=== PATIENT | female | born 1935 | race Native Hawaiian/Other Pacific Islander ===

== ENCOUNTER 2019-03-02 14:49 | Outpatient (CLI) | payer OTHER | END 2019-03-02 19:17 | disposition home or self-care (01) | LOC: LAB 14:49 | DX: Z11.2 Encounter for screening for other bacterial diseases (principal) | CPT/HCPCS: 87081 ==

== ENCOUNTER 2019-03-03 09:42 | Outpatient (CLI) | payer OTHER ==
[2019-03-03 10:25] LABS: PLATELET COUNT 197 K/uL (152-353)
[2019-03-03 10:28] LABS: POTASSIUM 4.3 mmol/L (3.6-5.2)
== END 2019-03-03 19:24 | disposition home or self-care (01) ==
LOC: LAB 09:42
PROVIDERS: Internal Medicine
DX: E78.49 Other hyperlipidemia (principal); E87.6 Hypokalemia; E53.8 Deficiency of other specified B group vitamins; E55.9 Vitamin D deficiency, unspecified; Z79.899 Other long term (current) drug therapy
CPT/HCPCS: 36415; 80053; 80061; 82306; 82542; 82607; 83036; 83540; 84443; 85027

== ENCOUNTER 2019-03-04 04:51 | Outpatient (CLI) | payer OTHER | END 2019-03-04 11:00 | LOC: LAB 04:51 | DX: Z51.81 Encounter for therapeutic drug level monitoring (principal) | CPT/HCPCS: 82542 ==

== ENCOUNTER 2019-03-12 10:00 | Inpatient (IN) | payer OTHER | END 2019-04-12 09:04 | disposition still patient (30) | LOC: PAVB 10:00 | PROVIDERS: ADMIT Internal Medicine ==

== ENCOUNTER 2019-04-12 09:18 | Inpatient (IN) | payer OTHER | END 2019-05-13 09:59 | disposition still patient (30) | LOC: PAVB 09:18 | PROVIDERS: ADMIT Internal Medicine ==

== ENCOUNTER 2019-05-13 10:16 | Inpatient (IN) | payer OTHER | END 2019-06-11 13:19 | disposition still patient (30) | LOC: PAVB 10:16 | PROVIDERS: ADMIT Internal Medicine ==

== ENCOUNTER 2019-06-11 13:36 | Inpatient (IN) | payer OTHER | END 2019-07-12 09:49 | disposition still patient (30) | LOC: PAVB 13:36 | PROVIDERS: ADMIT Internal Medicine ==

== ENCOUNTER 2019-07-12 11:16 | Inpatient (IN) | payer OTHER | END 2019-08-11 09:07 | disposition still patient (30) | LOC: PAVB 11:16 | PROVIDERS: ADMIT Internal Medicine | CPT/HCPCS: 87635; U0002 ==

== ENCOUNTER 2019-08-11 11:06 | Inpatient (IN) | payer OTHER | END 2019-09-11 09:15 | disposition still patient (30) | LOC: PAVB 11:06 | PROVIDERS: ADMIT Internal Medicine | CPT/HCPCS: 87635; U0002 ==

== ENCOUNTER 2019-08-15 08:54 | Outpatient (CLI) | payer OTHER ==
[2019-08-15 09:45] LABS: POTASSIUM 4.8 mmol/L (3.6-5.2)
[2019-08-15 09:48] LABS: PLATELET COUNT 190 K/uL (152-353)
== END 2019-08-15 19:06 | disposition home or self-care (01) ==
LOC: LAB 08:54
PROVIDERS: Internal Medicine
DX: E87.6 Hypokalemia (principal); Z51.81 Encounter for therapeutic drug level monitoring
CPT/HCPCS: 80053; 82542; 85027

== ENCOUNTER 2019-09-11 11:14 | Inpatient (IN) | payer OTHER | END 2019-10-11 10:23 | disposition still patient (30) | LOC: PAVB 11:14 | PROVIDERS: ADMIT Internal Medicine | CPT/HCPCS: 87635; U0002 ==

== ENCOUNTER 2019-10-11 11:48 | Inpatient (IN) | payer OTHER | END 2019-11-11 09:21 | disposition still patient (30) | LOC: PAVB 11:48 | PROVIDERS: ADMIT Internal Medicine | CPT/HCPCS: 87635; U0002 ==

== ENCOUNTER 2019-11-11 10:03 | Inpatient (IN) | payer OTHER | END 2019-12-12 12:21 | disposition still patient (30) | LOC: PAVB 10:03 | PROVIDERS: ADMIT Internal Medicine | CPT/HCPCS: 87635; U0002 ==

== ENCOUNTER 2019-12-12 13:22 | Inpatient (IN) | payer OTHER | END 2020-01-11 11:08 | disposition still patient (30) | LOC: PAVB 13:22 | PROVIDERS: ADMIT Internal Medicine ==

== ENCOUNTER 2020-01-11 14:04 | Inpatient (IN) | payer OTHER | END 2020-02-11 08:00 | disposition still patient (30) | LOC: PAVB 14:04 | PROVIDERS: ADMIT Internal Medicine ==

== ENCOUNTER 2020-02-11 09:00 | Inpatient (IN) | payer OTHER | END 2020-03-12 09:53 | disposition still patient (30) | LOC: PAVB 09:00 | PROVIDERS: ADMIT Internal Medicine; ATTEND Internal Medicine ==

== ENCOUNTER 2020-02-13 09:39 | Outpatient (CLI) | payer OTHER ==
[2020-02-13 10:24] LABS: POTASSIUM 4.4 mmol/L (3.6-5.2)
[2020-02-13 10:26] LABS: PLATELET COUNT 207 K/uL (152-353)
== END 2020-02-13 23:31 | disposition home or self-care (01) ==
LOC: LAB 09:39
PROVIDERS: Internal Medicine
DX: E78.49 Other hyperlipidemia (principal); E87.6 Hypokalemia; Z51.81 Encounter for therapeutic drug level monitoring
CPT/HCPCS: 80053; 80061; 82542; 85027

== ENCOUNTER 2020-03-12 10:46 | Inpatient (IN) | payer OTHER | END 2020-04-12 09:02 | disposition still patient (30) | LOC: PAVB 10:46 | PROVIDERS: ADMIT Internal Medicine; ATTEND Internal Medicine ==

== ENCOUNTER 2020-03-31 17:17 | Outpatient (CLI) | payer OTHER | END 2020-03-31 20:14 | disposition home or self-care (01) | LOC: LAB 17:17 | PROVIDERS: ATTEND Internal Medicine | DX: R82.998 Other abnormal findings in urine (principal); R35.0 Frequency of micturition | CPT/HCPCS: 81000; 87077; 87086; 87088; 87185 ==

== ENCOUNTER 2020-04-11 08:55 | Outpatient (CLI) | payer OTHER | END 2020-04-11 18:58 | disposition home or self-care (01) | LOC: LAB 08:55 | PROVIDERS: ATTEND Internal Medicine | DX: N39.0 Urinary tract infection, site not specified (principal) | CPT/HCPCS: 81000 ==

== ENCOUNTER 2020-04-12 09:08 | Inpatient (IN) | payer OTHER | END 2020-05-13 14:54 | disposition still patient (30) | LOC: PAVB 09:08 | PROVIDERS: ADMIT Internal Medicine; ATTEND Internal Medicine ==

== ENCOUNTER 2020-05-13 15:00 | Inpatient (IN) | payer OTHER | END 2020-06-10 09:53 | disposition still patient (30) | LOC: PAVB 15:00 | PROVIDERS: ADMIT Internal Medicine; ATTEND Internal Medicine ==

== ENCOUNTER 2020-06-10 10:01 | Inpatient (IN) | payer OTHER | END 2020-07-11 09:59 | disposition still patient (30) | LOC: PAVB 10:01 | PROVIDERS: ADMIT Internal Medicine; ATTEND Internal Medicine ==

== ENCOUNTER 2020-07-11 10:24 | Inpatient (IN) | payer OTHER | END 2020-08-10 10:50 | disposition still patient (30) | LOC: PAVB 10:24 | PROVIDERS: ADMIT Internal Medicine; ATTEND Internal Medicine ==

== ENCOUNTER 2020-08-10 10:59 | Inpatient (IN) | payer OTHER | END 2020-09-10 14:38 | disposition still patient (30) | LOC: PAVB 10:59 | PROVIDERS: ADMIT Internal Medicine; ATTEND Internal Medicine ==

== ENCOUNTER 2020-08-14 06:50 | Outpatient (CLI) | payer OTHER ==
[2020-08-14 10:14] LABS: PLATELET COUNT 257 K/uL (152-353)
[2020-08-14 10:31] LABS: POTASSIUM 4.6 mmol/L (3.6-5.2)
== END 2020-08-14 19:14 | disposition home or self-care (01) ==
LOC: LAB 06:50
PROVIDERS: ATTEND Internal Medicine
DX: R56.9 Unspecified convulsions (principal); E87.6 Hypokalemia
CPT/HCPCS: 80053; 82542; 85027

== ENCOUNTER 2020-09-10 07:28 | Outpatient (CLI) | payer OTHER | END 2020-09-10 19:07 | disposition home or self-care (01) | LOC: LAB 07:28 | PROVIDERS: ATTEND Internal Medicine | DX: M81.0 Age-related osteoporosis without current pathological fracture (principal) | CPT/HCPCS: 82306 ==

== ENCOUNTER 2020-09-10 14:44 | Inpatient (IN) | payer OTHER | END 2020-10-10 09:00 | disposition still patient (30) | LOC: PAVB 14:44 | PROVIDERS: ADMIT Internal Medicine; ATTEND Internal Medicine ==

== ENCOUNTER 2020-10-10 08:00 | Inpatient (IN) | payer OTHER | END 2020-11-10 08:00 | disposition still patient (30) | LOC: PAVB 08:00 | PROVIDERS: ADMIT Internal Medicine; ATTEND Internal Medicine ==

== ENCOUNTER 2020-11-01 14:34 | Outpatient (CLI) | payer OTHER | END 2020-11-01 19:11 | disposition home or self-care (01) | LOC: RAD 14:34 | PROVIDERS: ATTEND Internal Medicine | DX: R06.89 Other abnormalities of breathing (principal) ==

== ENCOUNTER 2020-11-02 06:11 | Outpatient (CLI) | payer OTHER ==
[2020-11-02 07:15] LABS: PLATELET COUNT 186 K/uL (152-353)
[2020-11-02 07:18] LABS: POTASSIUM 3.8 mmol/L (3.6-5.2)
== END 2020-11-02 20:24 | disposition home or self-care (01) ==
LOC: LAB 06:11
PROVIDERS: ATTEND Internal Medicine
DX: J18.9 Pneumonia, unspecified organism (principal)
CPT/HCPCS: 80053; 83605; 85027

== ENCOUNTER 2020-11-10 09:00 | Inpatient (IN) | payer OTHER | END 2020-12-11 10:16 | disposition still patient (30) | LOC: PAVB 09:00 | PROVIDERS: ADMIT Internal Medicine; ATTEND Internal Medicine ==

== ENCOUNTER 2020-12-11 10:43 | Inpatient (IN) | payer OTHER | END 2021-01-10 08:41 | disposition still patient (30) | LOC: PAVB 10:43 | PROVIDERS: ADMIT Internal Medicine; ATTEND Internal Medicine ==

== ENCOUNTER → 2020-12-15 | Outpatient (CLI) | payer OTHER ==
[2020-12-15 21:51] LABS: PLATELET COUNT 297 K/uL (152-353)
== END ==
LOC: LAB 21:02
PROVIDERS: ATTEND Internal Medicine
DX: R53.83 Other fatigue (principal)
CPT/HCPCS: 80053; 81000; 85007; 85027; 87077; 87086; 87088; 87186

== ENCOUNTER 2021-02-08 18:44 | Outpatient (CLI) | payer OTHER | END 2021-02-08 19:31 | disposition home or self-care (01) | LOC: LAB 18:44 | PROVIDERS: ATTEND Internal Medicine | DX: R41.82 Altered mental status, unspecified (principal) | CPT/HCPCS: 81000; 87077; 87086; 87088; 87185; 87186 ==

== ENCOUNTER 2021-02-09 19:23 | Inpatient (IN) | payer OTHER ==
[~2021-02-09] VITALS: Ht 162.6 cm; Wt 47.2 kg
[2021-02-09] VITALS (8 sets, daily range): BP systolic 98–122; BP diastolic 64–77; TEMP 97.2–97.9
[2021-02-09 20:25] LABS: PLATELET COUNT 305 K/uL (152-353)
[2021-02-09 20:33] LABS: POTASSIUM 3.3 mmol/L (3.6-5.2)
[2021-02-09 20:43] LABS: PARTIAL THROMBOPLASTIN TIME 37.9 SECONDS (24.5-33.6)
--- NOTE | 2021-02-09 22:45 | NUR ---
PT. ADMITTED TO ROOM#1102 VIA STRETCHER FROM THE ER. PATIENT IS A RESIDENT AT [facility] AND WAS BROUGHT OVER TO ER FOR EVAL DUE TO NOT EATING OR DRINKING WELL FOR ONE DAY, HYPOTENSION AND TACHYCARDIA. URINALYSIS HAD ALREADY BEEN COLLECTED AND PATIENT DOES HAVE UTI BUT HASNT BEEN STARTED ON ANTIBIOTICS PREVIOUS TO ARRIVAL AT ER. [facility] STAFF AND MEDICAL RECORDS STATE PATIENT IS NON AMBULATORY WITH LEGS CONTRACTED AND NORMALLY NON VERBAL BUT USUALLY IS ABLE TO EAT AND DRINK WITH ASSISTANCE AND NORMALLY TAKES HER MEDS CRUSHED WITHOUT ANY PROBLEMS UNTIL YESTERDAY. PATIENT WILL OPEN HER EYES BUT DOESNT RESPOND TO VOICE OR TOUCH AT THIS TIME. TELEMTRY PLACED ON PATIENT. NO ACUTE DISTRESS NOTED AT THIS TIME. PATIENT RESTING QUIETLY. WILL CONTINUE TO MONITOR. PATIENTS COAG STUDIES ARE ALSO OUT OF THE NORMAL RANGE AND [facility] PHARMACIST WITH [facility] CALLED AND WOULD LIKE TO CLARIFY WITH THE HOSPITALIST ABOUT ORDER FOR LOVENOX AND RECOMMEND DUE TO LAB VALUES TO HOLD THE LOVENOZ ORDER AT THIS TIME. WILL PASS ON TO DAY SHIFT NURSE TO NOTIFY DR. SÁNCHEZ AND TO HOLD OR DC ORDER.
[2021-02-10] VITALS (8 sets, daily range): BP systolic 115–135; BP diastolic 61–72; TEMP 96.8–97.6; Ht 162.6 cm; Wt 47.2 kg
[2021-02-10] MEDS ORDERED: ASPIRIN 81 LOW81 MG PO (07:55)
[2021-02-10] MEDS ORDERED: BISACODYL LAXAT10 MG RE (07:59)
[2021-02-10 08:00] LABS: PLATELET COUNT 215 K/uL (152-353)
[2021-02-10] MEDS ORDERED: CULTURELL3 PO (08:01)
[2021-02-10] MEDS ORDERED: GALANTAMINE4 MG PO (08:02)
[2021-02-10] MEDS ORDERED: LEVE500T5 PO ×2 (08:03)
[2021-02-10] MEDS ORDERED: MEGACE ES PO (08:06)
[2021-02-10] MEDS ORDERED: NAMENDA XR28 MG PO (08:07)
[2021-02-10] MEDS ORDERED: MILK OF MA400 MG/5 M PO (08:08)
[2021-02-10] MEDS ORDERED: MULTIVITAMIN PO (08:08)
[2021-02-10] MEDS ORDERED: [UNRECOGNIZED DRUG - OTHER] PO (08:09)
[2021-02-10] MEDS ORDERED: VITAMIN C500 M7 PO (08:10)
[2021-02-10 08:16] LABS: POTASSIUM 4.1 mmol/L (3.6-5.2)
[2021-02-10] MEDS ORDERED: VITAMIN D3 COMPLETE PO (08:16)
--- NOTE | 2021-02-10 11:15 | NUR ---
02/10/21 0835 DAUGHTER SCOTTIE STANTON CALLED TO CHECK ON MOM UPDATED ON PLAN OF CARE,SHE SAID SHE WILL CALL BACK IN ALITTLE WHILE TO CHECK ON MOM IF ANYTHING CHANGES LET HER KNOW.PHONE [phone].CC 02/10/21 [address] NEW ON CRITICAL LABS THIS AM.CC 02/10/21 1019 RECHECKED OXYGEN ON PATIENT 97 PERCENT ON 3LPM NC.CC 02/10/21 1030 DAUGHTER EDITA CALLED TO CHECK ON MOTHER UPDATED ON PLAN OF CARE.EXPLAINED TO HER IF SHE COULD SPEAK WITH SISTER WITH MOM'S CARE SO ONLY ONE SIBLING COULD CALL TO CHECK ON MOM.SHE SAID THAT WOULD BE FINE. NUMBER [phone].CALL WITH ANY CHANGES.CC
--- NOTE | 2021-02-10 11:34 | NUR ---
02/10/21 1127 EKG PER RESP SINUS RHYTHM.CC
--- NOTE | 2021-02-10 12:43 | NUR ---
02/10/21 [address] NEW TROPONIN 117.60,LACTIC ACID 2.3.CC
--- NOTE | 2021-02-10 15:47 | NUR ---
02/10/21 1540 LYING IN BED EYES OPEN RESP EVEN NONLABORED.NAD NOTED.IV FLUIDS INFUSINF WITHOUT DIFFICULTY,CC
[2021-02-11] VITALS: BP 129/65; TEMP 96.5
[2021-02-11 04:00] VITALS: BP 136/73; TEMP 96.2
--- NOTE | 2021-02-11 07:34 | NUR ---
ON ROUNDING THIS MORNING PATIENT IS RESTING QUIETLY WITH EYES CLOSED. SHIFT ASSESSMENT WAS COMPLETED. PATIENT IS LETHARGIC AND APHASIC. ORAL MUCOSA IS DRY AND COATED WITH GREEN/BROWN DEBRIS. DRESSING TO SACRUM REMOVED AND STAGE 2 DECUBITUS ULCER NOTED B/W SACRUM AND COCCYX MEASURING APPROX. 8.8 CM X 5.6 CM SCANTS OF BLOOD NOTED WITH SOME AREAS BROWNISH BLACK IN COLOR. AREA COVERED UP WITH DRESSING AND WILL NOTIFY FOR TREATMENTS WITH MEDICATIONS. PATIENT REPOSITIONED ON HER LEFT SIDE.
[2021-02-11 08:00] VITALS: BP 123/39; TEMP 97
[2021-02-11 08:18] LABS: PLATELET COUNT 196 K/uL (152-353)
--- NOTE | 2021-02-11 08:25 | NUR ---
RT HERE IN PATIENTS ROOM. PATIENTS 02 SATS READING 88% ON RA. PATIENT PLACED ON 4 L NC WITH 02 INCREASING TO 95%.
--- NOTE | 2021-02-11 08:36 | NUR ---
SPOKE WITH PATIENTS DAUGHTER SHE WANTED A UPDATE ON HER MOTHER. ANSWERED ALL QUESTIONS REGARDING CARE AND RECENT LABS.
--- NOTE | 2021-02-11 11:01 | NUR ---
PATIENT REPOSITIONED ON TO HER RIGHT SIDE WITH PILLOWS ON HER BACK FOR SUPPORT.
[2021-02-11 12:00] VITALS: BP 118/52; TEMP 95.8
--- NOTE | 2021-02-11 14:37 | NUR ---
PATIENT IS RESTING QUIELTY WITH EYES CLOSED. PATIENT REPOSITIONED ON TO HER RIGHT SIDE WITH PILLOWS FOR SUPPORT.
[2021-02-11 16:00] VITALS: BP 105/51; TEMP 97.9
--- NOTE | 2021-02-11 16:31 | NUR ---
SITTING AT THE BEDSIDE WITH OTHER FAMILY. DAUGHTER REQUESTED TO TALK TO FOR UPDATE. NOTIFIED AT THIS TIME.
--- NOTE | 2021-02-11 19:58 | NUR ---
LATE ENTRY 1914- DRESSING TO SACRUM/COCCYX REMOVED AND AREA CLEANED WITH NS AND SANTYL APPLIED AND COVERED WITH 4X4 AND ABD PAD AND SECURED WITH PAPER TAPE.
[2021-02-11 20:00] VITALS: BP 125/40; TEMP 96.2
[2021-02-12] VITALS: BP 106/41; TEMP 96.1
--- NOTE | 2021-02-12 00:53 | NUR ---
PT HAS BEEN TURNED AND REPOSITIONED EVERY 2 HOURS. PT WAS CHANGED X 2. PT INCONTINENT OF URINE. DRESSING TO COCCYX WAS CLEANED AND REDRESSED. SANTYL DRESSED WAS PLACED ON AREA. DRESSING IS SECURE. CLEAN AND DRY. PT IS CONTINUING TO RECEIVE K RIDER ORDERED. PT ON TELEMENTY AND NO CHANGES NOTED. MONITORING CLOSELY.
[2021-02-12 03:43] VITALS: BP 103/43; TEMP 96.3
--- NOTE | 2021-02-12 04:09 | NUR ---
ROUNDS MADE. PT CONTINUES TO REST QUIETLY. PT WAS REPOSITIONED IN BED.
[2021-02-12 08:00] VITALS: BP 107/45; TEMP 96.9
[2021-02-12 08:11] LABS: PLATELET COUNT 163 K/uL (152-353)
--- NOTE | 2021-02-12 08:55 | NUR ---
DR. CH ORDERS A IN AND OUT CATH FOR UA COLLECTION
--- NOTE | 2021-02-12 10:35 | NUR ---
IN AND OUT CATH PERFORMED AND UA COLLECTED, PT NONREPSONSIVE TO STIMULI, UNFOCUSED GAZE, PT BRIEF CHANGED AND TURNED TO RT SIDE AT THIS TIME, STAGE II WOUND NOTED TO COCCYX WITH DRESSING INTACT, FAMILY IN RM WITH PT, NO FURTHER NEEDS AT THIS TIME, WILL COTNINUE TO MONITOR
[2021-02-12 12:00] VITALS: BP 98/37; TEMP 96.2
--- NOTE | 2021-02-12 12:30 | NUR ---
INFORMED DR. CH OF PT TEMP OF 96.2 F BY AXILLARY, DR. CH STATES TO KEEP PT WARM POSSIBLE, PT COVERED WITH BLANKETS AND HEAT TURNED UP IN RM, NO FURTHER ORDERS GIVEN AT THIS TIME, WILL CONTINUE TO MONITOR
--- NOTE | 2021-02-12 13:25 | NUR ---
IN PT RM TO CHANGE DRESSING TO SACRUM AND TURN PT, PT LYING IN HF ON RT SIDE, SHALLOW BREATHING, OLD DRESSING REMOVED AND STAGE II WOUND CLEANSED WITH NS, SANTYL CREAM APPLIED AND 4X4 GAUZE PLACED WITH PAPER TAPE USED SECURE, PT DID GROAN TO PAINFUL STIMULI WHEN REMOVING OLD DRESSING, BRIEF CHANGED AND PT TURNED TO LT SIDE AND PILLOW PLACED BETWEEN HER LEGS, NO FURTHER NEEDS AT THIS TIME, WILL CONTINUE TO MONITOR
[2021-02-12 16:00] VITALS: BP 119/46; TEMP 96.3
[2021-02-12 20:00] VITALS: BP 117/50; TEMP 96.6
[2021-02-13] VITALS: BP 119/51; TEMP 96.2
--- NOTE | 2021-02-13 03:34 | NUR ---
Pt resting in bed with eyes closed. Pt nonverbal. T&R q 2 hours for comfort. IV D51/4 infusing at 125 ml/hr to right hand without difficulty. Pt cont with IV ABT with no adverse reaction noted. Pt noted to have episode of bladder incontinence at this time. Pericare provided. O2 @ 2 l/m via nc. Telemetry intact. Call light in reach.
[2021-02-13 04:00] VITALS: BP 109/52; TEMP 96.4
[2021-02-13 04:52] LABS: PLATELET COUNT 148 K/uL (152-353)
[2021-02-13 05:08] LABS: POTASSIUM 3.4 mmol/L (3.6-5.2)
[2021-02-13 08:00] VITALS: BP 131/31; TEMP 97.1
--- NOTE | 2021-02-13 08:05 | NUR ---
UPON RT ARRIVAL PT IS ON 4LPM NC WITH SPO2 AT 98%. RT DECREASED PT TO 3LPM NC AT 32%. SPO2 NOW AT 96%. WILL CONTINUE TO MONITOR.
--- NOTE | 2021-02-13 15:21 | NUR ---
Cherise RN told this speech writer that family asked to speak with case mgmt/social studies department chair. I went to pts room and 3 daughters Estelita Sanabria [phone], [phone], Opal Sher c [phone], [phone], and Silvia Teresa c [phone] were present. They stated they had discussed with Dr. Fritz that they wanted only care and comfort measures for thier mother at this time. I aswered all questions regarding her stay at our facility and also told them i would update Gemma SeunKamaljit @ the [facility] about her status. Phone call made to Gemma Chaparro and she verbalized understanding of pts condition.
[2021-02-13 20:00] VITALS: BP 139/49; TEMP 97.1
--- NOTE | 2021-02-13 20:30 | NUR ---
PT RESTING ON SIDE IN BED WITH EYES CLOSED, NO S/S OF PAIN OR DISTRESS NOTED, RESP RATE NONLABORED, O2 AT 3LPM VIA NC, 22G IV LOCK INTACT TO R HAND WITH N PROBLEMS NOTED TO SITE, DAUGHTER AT BEDSIDESTATES SHE DOES NOT NEED ANYTHING ALSO STATES PT WAS CHANGED AND REPOSITIONED NO THAT LONG AGO AND WANTS HER TO REMAIN IN CURRENT POSITION FOR COMFORT, PT APPEARS TO BE COMFORTABLE. WILL MONITOR CLOSELY, RAILS UP, BED IN LOW POSITION, ENCOURAGED FAMILY TO CALL NEEDED FOR ANY S/S OF PAIN OR ANXIETY ACKNOWLEDGES UNDERSTANDING. PT DOES NOT RESPOND OR OPEN EYES TO ENVIRONMENTAL ENGINEERING MANAGER TOUCHING AND ACCESSING HER.
--- NOTE | 2021-02-14 00:10 | NUR ---
PT RESTING WITH EYES CLOSED, NO S/S OF PAIN OR DISTRESS NOTED, RESP RATE NONLABORED, O2 AT 3LPM VIA NC, DAUGHTER REMAINS AT BEDSIDE. DEPEND CHANGED DUE TO INCONTINENT VOID, REPOSITIONED IN BED TO R SIDE WITH PILLOW BETWEEN KNEES AND UNDER FEET(SOCKS REMOVED DUE TO TIGHT ON ANKLES/FEET AND NOW ELEVATED TO HELP WITH SWELLING), 22G IV LOCK INTACT TO R HAND WITWH NO PROBLEMS NOTED TO SITE. PT'S DAUGHTER STATES SHE DID MOUTH CARE NOT LONG AGO WHEN VIRTUALIZATION ARCHITECT OFFERED TO DO MOUTH CARE ON PT. DRESSING TO SACRAL AREA REMOVED DUE TO WET WITH URINE. STILL NO S/S OF PAIN OR DISTRESS AFTER CARE COMPLETED. ENCOURAGED DAUGHTER TO CALL NEEDED OR FOR S/S OF PAIN/ANXIETY PRN DUE TO MEDICATION CAN BE GIVEN IF NEEDED. WILL MONITOR, RAILS UP X3, BED IN LOW POSITION, CALL LIGHT IN REACH.
--- NOTE | 2021-02-14 04:09 | NUR ---
CONTINUES TO REST QUIETLY WITH EYES CLOSED, NO S/S OF PAIN OR DISTRESS NOTED, RESP RATE NONLABORED, O2 AT 3LPM VIA NC, FEET ELEVATED ON PILLOW(SWELLING HAS DECREASED IN FEET SINCE SOCKS TAKEN OFF AND ELEVATED), PT'S DAUGHTER AT BEDSIDE STATES SHE DOES NOT WANT PT TURNED AT THIS TIME SINCE SHE APPEARS COMFORTABLE(CARE AND COMFORT ORDERD). WILL MONITOR CLOSELY, RAILS UP X3, BED IN LOW POSITION, CALL LIGHT IN REACH, ENCOURAGED DAUGHTER TO CALL NEEDED.
--- NOTE | 2021-02-14 06:15 | NUR ---
PT FOUND RESTING WITH EYES CLOSED, NO DISTRESS NOTED, DAUGHTER AT BEDSIDE. DEPEND WET WITH URINE PT CLEANED UP AND ALSO GOWN CHANGED. REPOSITIONED TO L SIDE, FEET ELEVATED ON PILLOWS, HOB ELEVATED, IV LOCK INTACT, O2 IN USE, PT OPENS EYES DURING CARE, WILL MONITOR, RAILS UP, BED IN LOW POSITION, ENCOURAGED FAMILY TO CALL NEEDED.
[2021-02-14 08:00] VITALS: BP 134/72; TEMP 97.1
--- NOTE | 2021-02-14 14:10 | NUR ---
DRESSING TO LEFT BUTTOCK AND SACRUM REMOVED. WOUND CLEANSED WITH NS AND PATTED DRY. WOUND MEASUREMENTS OBTAINED OF 5.9CM X 5CM AND IS UNABLE TO BE DETERMINED. SANTYL APPLIED TO WOUND, COVERED WITH 4X4 AND ABD PAD AND SECURED WITH PAPER TAPE. PATIENT TOLERATED WELL.
--- NOTE | 2021-02-14 15:00 | NUR ---
WOUND CARE PROVIDED PER MD ORDERS. PT TOLERATED WELL
[2021-02-14 20:00] VITALS: BP 116/49; TEMP 98
--- NOTE | 2021-02-14 21:36 | NUR ---
PT'S DAUGHTER AT BEDSIDE. PT IS CARE AND COMFORT MEASURES. PT IS 85 YEAR OLD WHITE FEMALE FROM THE [facility]. PT IS NONRESPONSIVE. MONITORING CLOSELY. INSTRUCTED PT'S DAUGHTER TO CALL FOR ASSISTANCE . PT'S DAUGHTER VOICED UNDERSTANDING.
--- NOTE | 2021-02-14 23:36 | NUR ---
PT'S BRIEF WAS CHANGED. PT INCONTINENT OF URINE. PT WAS CLEANED AND DRIED. PT WAS REPOSITIONED IN BED TO HER RIGHT SIDE. PILLOWS PLACED TO PT'S BACK AND UNDER LOWER AND UPPER EXTREMITIES. PT'S DAUGHTER AT BEDSIDE. PT WITH EYES CLOSED AND NAD NOTED.
--- NOTE | 2021-02-15 05:27 | NUR ---
PT CARE AND COMFORT STATUS. PT WAS CLEANED. INCONTINENT OF URINE. BRIEFS CHANGED. PT WAS REPOSITIONED TO HER BACK. FLOATING ON BOTH SIDES. DRESSING TO SACRUM INTACT CLEAN AND DRY. DAUGHTER AT BEDSIDE.
[2021-02-15 08:00] VITALS: BP 109/63; TEMP 97.1
--- NOTE | 2021-02-15 08:25 | NUR ---
AM ASSESSMENT COMPLETED AT THIS TIME. PATIENT RESTING QUIETLY IN LOW FOWLERS POSITION WITH EYES CLOSED. PATIENT IS NON-VERBAL BUT OPENS EYES TO VERBAL OR TACTICAL STIMULI. RESPIRATIONS ARE NON-LABORED AND EVEN AND RECEIVING OXYGEN VIA NC @ 3LPM. 22G IV SITE TO RIGHT HAND FLUSHED WELL WITH NS 10ML, NO REDNESS, EDEMA OR DRIANAGE NOTED TO IV SITE. PT'S DAUGHTER AT BEDSIDE AND DENIES ANY NEEDS OR C/O AT THIS TIME. PT'S DAUGHTER ENCOURAGED TO CALL FOR ANY ASSISTANCE OR NEEDS, SHE V/O UNDERSTANDING. MICHAELA HEELS ARE FLOATING, PILLOWS PLACED UNDER BONY PROMINENCES, BETWEEN BLE AND UNDER BUE FOR SUPPORT. SIDE RAILS UP X3, BED IN LOW AND LOCKED POSITION. NAD NOTED WITH PATIENT AT THIS TIME.
--- NOTE | 2021-02-15 15:06 | NUR ---
EXTENSIVE MOUTH CARE PROVIDED TO PATIENT, PATIENT EYES OPENS SPONTANOUSLY. DAUGHTER REMAINS AT BEDSIDE, ICE PROVIDED. PATIENT'S DAUGHTER DENIES ANY OTHER NEEDS OR C/O AT THIS TIME. INSTRUCTED DAUGHTER TO CALL FOR ANY OTHER ASSISTANCE OR NEEDS.
--- NOTE | 2021-02-15 18:38 | NUR ---
DURING AM SHIFT, PATIENT WAS REPOSITIONED MULTIPLE TIMES. 22G IV TO RIGHT HAND WAS FLUSHED WITH NS 10ML WITHOUT DIFFICULTY, NO REDNESS, EDEMA OR DRAINAGE NOTED TO SITE. DAUGHTER REMAINED AT BEDSIDE DURING AM SHIFT AND DENIED ANY NEEDS OR C/O, REMINDED DAUGHTER ON USE OF CALL LIGHT AND INSTRUCTED HER TO CALL FOR ANY NEEDS, DAUGHTER V/O UNDERSTANDING. PATIENT OPENED EYES TO TACTICAL AND/OR VERBAL STIMULI BUT REMAINS TO BE NON-VERBAL. NAD NOTED WITH PATIENT DURING AM SHIFT.
[2021-02-15 20:00] VITALS: BP 98/52; TEMP 97.2
--- NOTE | 2021-02-15 20:00 | NUR ---
PM ROUNDS WERE MADE. PULSE OX CHECKED. SAT IS 88 PERCENT. DAUGHTER AT BEDSIDE.
--- NOTE | 2021-02-16 06:56 | NUR ---
FREQUENT ROUNDS MADE. PT HAS NOT NEEDED ANY PAIN MEDICATIONS OR ANY OTHER MEDS THIS SHIFT. DAUGHTER AT BEDSIDE. PT IS COMFORT CARE. DNR STSTUS. REPOSITIONED IN BED. INSTRUCTED DAUGHTER TO CALL FOR ASSISTANCE. DAUGHTER VOICED UNDERSTANDING.
[2021-02-16 08:00] VITALS: BP 112/57; TEMP 98.7
--- NOTE | 2021-02-16 15:15 | NUR ---
WHILE REPOSITIONING PATIENT, NURSE NOTICED PATIENT'S BREATHING TO BE LABORED, HR 100 AND SPO2 94% ON 4LPM VIA NC. PROVIDED UPDATE ON PATIENT'S CHANGE OF BREATHING TO PT'S DAUGHTER AT BEDSIDE AND REMINDED HER OF MORPHINE ORDERED FOR LABORED BREATHING. PATIENT'S DAUGHTER REQUESTED TO WAIT UNTIL HER SISTERS RETURNED AROUND 430PM TO ADMINISTER MORPHINE. REPORTED SAME TO DR. CH.
--- NOTE | 2021-02-16 18:40 | NUR ---
MRS. FRASER, PATIENT'S DAUGHTER, CAME TO NURSES STATION AND REQUESTED MORPHINE TO BE ADMINISTERED TO PATIENT DUE TO LABORED BREATHING. REQUEST GRANTED. PATIENT'S HR 104, SPO2 94%. CALL LIGHT WITHIN DAUGHTERS REACH AND MRS. FRASER ENCOURAGED TO CALL FOR ANY ASSISTANCE OR NEEDS.
[2021-02-16 21:19] VITALS: BP 98/44; TEMP 97.7
--- NOTE | 2021-02-16 23:30 | NUR ---
IN PT'S ROOM AT THIS TIME. PT. RESTING WELL WITH A HR OF 97 AND 02 SAT OF 94% ON 4L N/C. NON-LABORED AND EVEN BREATHING AT THIS TIME. NO S/S OF ACUTE DISTRESS NOTED OR EXHIBITED BY PT AT THIS TIME. DAUGHTER AT BEDSIDE. WILL CONTINUE TO MONITOR FOR ANY ACUTE CHANGES.
--- NOTE | 2021-02-17 06:50 | NUR ---
DAUGHTER REQUESTED PT. TO GET PRN MORPHINE 2MG GIVEN DUE TO INCREASED SHALLOW BREATHING AND DISCOMFORT AT THIS TIME. HR- 97 AND O2 SAT 93%. PT. NON-VERBAL BUT RESTING WELL.
--- NOTE | 2021-02-17 07:45 | NUR ---
PT'S DAUGHTER AT BEDSIDE. PT'S DAUGHTER STATES "I DIDN'T LET THEM TURN HER LAST NIGHT, I'M A NURSE IN [place] AND I KNOW I SHOULD HAVE BUT SHE WAS COMFORTABLE AND I JUST DIDN'T WANT HER TO BE BOTHERED. CAROLANN DID GIVE HER SOME MORPHINE A LITTLE WHILE AGO." REMINDED PT'S DAUGHTER OF THE IMPORTANCE OF TURNING HER. AND INFORMED HER WE WOULD COME BACK LATER AND TURN HER.
[2021-02-17 08:00] VITALS: BP 102/51; TEMP 99
--- NOTE | 2021-02-17 11:00 | NUR ---
IN WITH BENJAMIN ALMEIDA CNA AND GLADIS STUDENT NURSE, TO CHANGE AND TURN PT. PT'S DAUGHTER REMAINS AT BEDSIDE INFORMED HER WE WOULD BE TURNING THE PATIENT AT THIS TIME. PT'S DAUGHTER STATES "OK WHILE YALL ARE IN HERE I'M GOING TO STEP OUT FOR A MINUTE" PT CHANGED AND TURNED TO RIGHT SIDE. 2 PURPLE DISCOLORED AREAS NOTED TO PT'S LEFT HIP, LEFT OUTTER HEEL NOTED TO BE CORNELL WITH DISCOLORED PURPLE AREA. PT'S DAUGHTER INFORMED OF PLACES ON HEEL AND HIP. THE DAUGHTER STATES "THANK YOU FOR LETTING ME KNOW SHE HAS HAD THE PLACE ON HER HEEL BUT THE HIP IS NEW BUT I HAVE THE WIPES THEY GAVE HIM TO RUB ON THE AREAS AND I'LL DO IT"
--- NOTE | 2021-02-17 13:54 | NUR ---
02/17/21 0800 PT LYING IN BED ASLEEP RESP EVEN SHALLOW.FAMILY MEMBERS PRESENT IN ROOM.CALL LIGHT WITHIN REACH.CC
--- NOTE | 2021-02-17 16:45 | NUR ---
IN TO CHECK ON PT. PT'S DAUGHTER EDITA STATES "SHE JUST STARTED HAVING SOME APNEA" UPON ASSESSMENT PT NOTED TO CURRENTLY BE APENIC. PT NOTED TO HAVE 8 MINUTES OF APENEA BEFORE TAKING A GASPING BREATH. PT'S HR REMAINS HIGH. STAYED AT PT'S BEDSIDE WITH 2 DAUGHTERS BRIA STANTON, AND EDITA. CON'T TO MONITOR AND ASSESS PT.
--- NOTE | 2021-02-17 17:12 | NUR ---
PT'S BREATHING NOTED TO CEASE. MONITOR NO LONGER PICKING UP. ON ASSESSMENT NO PULSE FELT. NOTIFIED DR. CH. DR. CH AT BEDSIDE. PT NOTED TO AT 1715.
--- NOTE | 2021-02-17 18:15 | NUR ---
PT'S BODY RELEASED TO THE [facility]ARE OF [facility].
== END 2021-02-17 17:55 | disposition expired | DRG 871 ==
LOC: ED 19:23 → MED/SURG 20:45
PROVIDERS: ADMIT Hospitalist; ATTEND Internal Medicine
DX: A41.89 Other specified sepsis (principal); I21.4 Non-ST elevation (NSTEMI) myocardial infarction; G92.8 Other toxic encephalopathy; E87.0 Hyperosmolality and hypernatremia; G40.802 Other epilepsy, not intractable, without status epilepticus; N17.8 Other acute kidney failure; E87.8 Other disorders of electrolyte and fluid balance, not elsewhere classified; F03.90 Unspecified dementia, unspecified severity, without behavioral disturbance, psychotic disturbance, mood disturbance, and anxiety; E87.6 Hypokalemia
CPT/HCPCS: 36415; 36600; 80048; 80053; 80202; 81000; 81002; 82550; 82805; 83605; 83880; 84443; 84484; 85007; 85027; 85610; 85730; 87040; 87077; 87086; 87088; 87185; 87186; 87635; 93005; 94760; 96360; 96361; 96365; 96366; 99284; J1956; J1100; J1644; J1953; J2270; J2543; J3370; J3480; J3490; U0003